=== PATIENT | female | born 1970 | race Caucasian/White ===

== ENCOUNTER → 2023-09-10 07:23 | Outpatient (REF) | payer BC, SELFPAY | LOC: HWRCS 07:23 | PROVIDERS: ATTENDING PHYSICIAN Internal Medicine Interventional Cardiology; FAMILY PHYSICIAN Internal Medicine | DX: R00.2 Palpitations (principal); I49.9 Cardiac arrhythmia, unspecified; R00.0 Tachycardia, unspecified | CPT/HCPCS: 93306 ==

== ENCOUNTER → 2024-03-17 08:50 | Outpatient (REF) | payer BC, SELFPAY | LOC: HWRAD 08:50 | PROVIDERS: ATTENDING PHYSICIAN Obstetrics & Gynecology | DX: N95.0 Postmenopausal bleeding (principal) | CPT/HCPCS: 76830; 76856 ==

== ENCOUNTER → 2024-10-27 08:14 | Outpatient (REF) | payer BC, SELFPAY | LOC: HWWDC 08:14 | PROVIDERS: ATTENDING PHYSICIAN Obstetrics & Gynecology; FAMILY PHYSICIAN Internal Medicine | DX: Z12.31 Encounter for screening mammogram for malignant neoplasm of breast (principal) | CPT/HCPCS: 77063; 77067 ==

== ENCOUNTER 2024-12-30 07:52 | Emergency (ER) | payer BC, SELFPAY ==
[2024-12-30 07:57] VITALS: BP 139/85
--- NOTE | 2024-12-30 08:14 | ED.GENMED ---
History of Present Illness
General
Chief Complaint: Abdominal Symptoms
Time Seen by Provider: 12/30/24 07:59
History of Present Illness
History of Present Illness:
See MDM
Past History
Past History
ED Past Medical History: None
ED Past Surgical History: None; Negative Appendectomy or Cholecystectomy
Social History
Tobacco: Non-smoker
Alcohol: None
Drug: None
Personal:
Living: with family
Employment: Employed
Phy Exam
Physical Exam
Physical Exam:
See MDM
Course
Orders/Labs/Results
Orders:
Orders
12/30/24 08:11
CT Abd/pel Without Iv Or Oral Urgent
Comment:
Reason For Exam: Left flank and LLQ pain
12/30/24 08:16
Urinalysis Reflex To Culture Urgent
Date Specimen was Collected: 12/30/24
Time Specimen was Collected: 08:14
12/30/24 08:56
Amoxicillin 875 mg/Clav 125 mg [Augmentin 875 mg/125 mg] 1 tablet PO NOW STA
Vital Signs
Initial and Last Documented VS:
Initial Vital Signs
Temp Pulse Resp BP Pulse Ox
97.5 F 94 16 139/85 99
12/30/24 07:57 12/30/24 07:57 12/30/24 07:57 12/30/24 07:57 12/30/24 07:57
Last Documented Vital Signs
Temp Pulse Resp BP Pulse Ox
97.5 F 94 16 139/85 99
12/30/24 07:57 12/30/24 07:57 12/30/24 07:57 12/30/24 07:57 12/30/24 08:16
MDM/Problems Addressed
Differential Diagnosis Includes:
Note:
CHIEF COMPLAINT(S)
Sharp pain in the Left flank
HISTORY OF PRESENT ILLNESS
The patient is a 54-year-old female who currently presents with sharp pain in the Left flank. She reports that the pain onset was gradual and not associated with any particular event. She describes the sensation as 'crappy' before the sharp pain
localized to her Flank. The patient denies prior removal of kidney stones and reports no significant past medical issues. She mentions experiencing some difficulty with bowel movements this morning, noting she did not go to the bathroom as expected.
PLAN
A computed tomography (CT) scan will be performed to investigate the cause of the pain. Additionally, a urinalysis will be conducted to assess for any urinary issues.
PHYSICAL EXAM
General: Alert, no acute distress.
Skin: Warm, dry.
Head: Normocephalic, atraumatic.
Neck: Supple, trachea midline.
Eye, Ears, Nose, and Throat: Oral mucosa moist.
Cardiovascular: Normal peripheral perfusion, No edema.
Respiratory: Respirations are non-labored.
Gastrointestinal: Abdomen nondistended with slight pain reported in some areas; absence of diverticulosis history.
Back: Normal range of motion, Normal alignment.
Musculoskeletal: Normal ROM, normal strength.
Neurological: Alert and oriented to person, place, time, and situation, No focal neurological deficit observed.
Psychiatric: Cooperative, appropriate mood & affect.
DIFFERENTIAL DIAGNOSIS
The Differential Diagnosis includes, in no particular order and is not limited to:
1. Kidney stone
2. Musculoskeletal strain
3. Diverticulitis
SUMMARY OF ENCOUNTER
The patient, a 54-year-old female, presented to the emergency department with a sharp pain in the left flank. Imaging studies, particularly a CT scan, were ordered to investigate the cause. The CT scan results indicated acute, uncomplicated
diverticulitis without evidence of abscess, fluid collection, or free air. The patient has a prior history of colonoscopy. Management included discussing follow-up with a framing mill operator and primary care physician, along with strict return
precautions for worsening symptoms or fevers. The patient has a noted allergy to penicillin with an adverse reaction but has tolerated amoxicillin/clavulanate (Augmentin) previously, so a prescription for Augmentin was provided.
ASSESSMENT
The presenting symptoms and imaging findings are consistent with acute, uncomplicated diverticulitis.
PLAN
The patient will follow up with a framing mill operator for further evaluation and management. Additionally, follow-up with the primary care physician is advised for continuity of care. Return precautions include monitoring for worsening pain or
fevers, indicating potential complications.
INDEPENDENT REVIEW OF LABS AND INTERPRETATION OF TESTS
- My independent interpretation of the CT scan is consistent with acute, uncomplicated diverticulitis with no evidence of abscess or free air.
PATIENT EDUCATION AND COUNSELING
The patient was educated regarding acute diverticulitis, including recognizing signs of potential complications such as increased pain or fever and the importance of follow-up care. Return precautions were discussed in detail.
FOLLOW-UP INSTRUCTIONS
The patient is instructed to schedule follow-up appointments with both the framing mill operator and primary care physician and to adhere strictly to return precautions for any exacerbation of symptoms.
MEDICATION RECONCILIATION
A prescription for amoxicillin/clavulanate (Augmentin) was provided.
MEDICAL DECISION MAKING
- Number and Complexity of Problems Addressed: DDx includes kidney stone, musculoskeletal strain, and diverticulitis.
- Data:
Category 1: A CT scan was performed, and labs were reviewed to determine the cause of the flank pain.
Category 3: Management of care discussed with the patient regarding follow-up needs and prescription given considering the patients drug allergy history.
- Risk: Consideration of Admission/Observation: Escalation of care including admission/observation was considered given the complexity and risk of the patients presenting complaint, but the patient is safe for outpatient management with close
follow-up due to reassuring findings and stable condition.
DIAGNOSIS
- Acute uncomplicated diverticulitis (ICD-10: K57.92)
*Pulse Oximetry
SaO2: 99
Oxygen Mode of Delivery: Room air
Patient hypoxic: no
*Critical Care Note
Total Time (30-74mins, 75-104mins- exclusive of procedures): Not Applicable
ED Attending Note
-
Portions of this chart may have been created with voice recognition software.� Occasional wrong word or��sound alike� substitutions may have occurred due to the inherent limitations of voice recognition software.
Discharge Plan
Departure
Patient Disposition: Home (Routine Discharge)
Date of Disposition: 12/30/24
Time of Disposition: 09:01
Patient with high blood pressure during this ER visit?: No
Discharge Problem:
Diverticulitis
Instructions: Diverticulitis (DC)
Prescriptions:
New
amoxicillin-pot clavulanate 875-125 mg tablet
1 tab PO BID Qty: 14 0RF
No Action
ibuprofen 600 mg tablet
600 mg PO Q8H PRN (Reason: Pain) Qty: 20 0RF
oxycodone-acetaminophen [Percocet] 5-325 mg tablet
1 tab PO Q4HPRN PRN (Reason: pain) Qty: 10 0RF
ondansetron 4 mg tablet,disintegrating
4 mg PO Q8H PRN (Reason: nausea and vomiting) Qty: 10 0RF
Referrals:
Ellyn Aguilera DO [Family Provider, Internal Medicine]
Nadir Mayes MD [Active, Gastroenterology]
Activity Restrictions/Additional Instructions:
Please return for any worsening symptoms especially worsening pain or fever.
You may return at any time if you have further concerns.
Please follow up with your doctor at the first available appointment, preferably this week.
Please make an appointment to see your framing mill operator.
Thank you for choosing [facility].
Interventions
Interventions:
*Risk Screen - Suicide Last Done: 12/30/24 07:57
*Neglect/Abuse Screening Last Done: 12/30/24 07:57
Discharge Date and Time
Print Language: GEORGIAN
[2024-12-30 08:58] LABS: Urine Character Clear (Clear)
[2024-12-30] MEDS: AUGMENTIN 875 MG/125 MG 1 TABLET PO (09:04)
[2024-12-30 09:11] VITALS: BP 127/63
== END 2024-12-30 09:12 | disposition home or self-care (01) ==
LOC: EMR 07:52
PROVIDERS: EMERGENCY PHYSICIAN Student in an Organized Health Care Education/Training Program; FAMILY PHYSICIAN Internal Medicine
DX: K57.32 Diverticulitis of large intestine without perforation or abscess without bleeding (principal); Z88.0 Allergy status to penicillin
CPT/HCPCS: 99284; 74176; 81003

== ENCOUNTER → 2025-01-20 15:03 | Outpatient (REF) | payer BC, SELFPAY | LOC: WDC 15:03 | PROVIDERS: ATTENDING PHYSICIAN Obstetrics & Gynecology; FAMILY PHYSICIAN Internal Medicine | DX: R92.2 Inconclusive mammogram (principal) | CPT/HCPCS: 76641 ==